=== PATIENT | female | born 1950 | race Caucasian/White ===

== ENCOUNTER 2019-05-12 10:58 | Emergency (ER) | payer MEDICAID ==
[~2019-05-12] VITALS: Ht 167.6 cm; Wt 72.0 kg
[2019-05-12] MEDS ORDERED: CEPHALEXIN 250MG CAPSULE PO ONE (12:15)
[2019-05-12] MEDS ORDERED: SULFAMETHOXAZOLE/TRIMETHOPRIM 800/160MG TABLET PO ONE (12:15)
[2019-05-12 12:36] VITALS: BP 108/63
== END 2019-05-12 12:37 | disposition home or self-care (01) ==
LOC: ER 11:25
DX: L03.115 Cellulitis of right lower limb (principal); S80.861A Insect bite (nonvenomous), right lower leg, initial encounter; W57.XXXA Bitten or stung by nonvenomous insect and other nonvenomous arthropods, initial encounter; Y93.9 Activity, unspecified; Y92.9 Unspecified place or not applicable
CPT/HCPCS: 99283